=== PATIENT | male | born 1990 | race Caucasian/White ===

== ENCOUNTER 2023-10-24 15:07 | Emergency (ER) | payer OTHER, SELFPAY ==
[2023-10-24 15:10] VITALS: BP 110/71; PULSE 72; RESP 18; TEMP 37.2; O2SAT 100; BMI 19.4
[2023-10-24 16:17] LABS: Basophils Percent Auto 0.5 % (0.2-2.0); Eosinophils Absolute Auto 0.1 10^3/uL (0.0-0.7); Eosinophils Percent Auto 2.6 % (0.9-7.0); Hematocrit 40.8 % (42.0-54.0); Hemoglobin 13.2 g/dL (14.0-18.0); Immature Granulocytes Abs Auto 0.02 10^3/uL (0.00-0.03); Immature Granulocytes Pct Auto 0.5 % (0.0-0.5); Lymphocytes Absolute Auto 0.9 10^3/uL (1.2-3.8); Lymphocytes Percent Auto 20.7 % (20.5-60.0); Mean Corpuscular HGB Conc 32.4 g/dL (29.9-35.2); Mean Corpuscular Hemoglobin 31.4 pg (25.9-34.0); Mean Corpuscular Volume 97.1 fL (80.0-94.0); Monocytes Absolute Auto 0.4 10^3/uL (0.3-0.8); Monocytes Percent Auto 10.4 % (1.7-12.0); Neutrophils Absolute Auto 2.8 10^3/uL (1.4-6.5); Neutrophils Percent Auto 65.3 % (43.0-75.0); Platelet Count 268 10^3/uL (150-450); White Blood Count 4.3 10^3/uL (4.0-11.0)
--- NOTE | 2023-10-24 16:20 | CT_ITS ---
[address] [address] Patient Name: EDU URENA MRN: [id number] date: 1990 Sex: M Assigned Patient Location: ER Current Patient Location: ER Accession/Order Number: [id number] Exam Date: 10/24/2023 16:09 Report Date: 10/24/2023 16:43 At the request of: MILTON WEBER Procedure: CT abdomen pelvis w con EXAMINATION: CT abdomen pelvis w con, 10/24/2023 1:09 PM PST HISTORY: upper abd pain COMPARISON: None. TECHNIQUE: CT scan of the abdomen and pelvis was performed with IV contrast. CT dose reduction technique was used, including Automated Exposure Control. FINDINGS: Lung: No significant finding. Liver: No significant finding. Gallbladder: No significant finding. Spleen: No significant finding. Pancreas: No significant finding. Adrenal glands: No significant finding. Kidneys, ureters and bladder: No significant finding. Bowel: No significant finding. Peritoneum/retroperitoneum: No significant finding. Lymph nodes: No significant finding. Vessels: No significant finding. Body wall: No significant finding. Reproductive: Prominent cystic changes of the bilateral seminal vesicles. Bones: Partially imaged spinal hardware. Hardware artifact limits evaluation. CT/CT abdomen pelvis w con IMPRESSION: No acute findings. Prominent cystic changes of the bilateral seminal vesicles. Electronically authenticated by: TOMA JOHNSON Date: 10/24/2023 16:43
[2023-10-24 16:32] LABS: Alanine Aminotransferase 39 U/L (16-63); Alkaline Phosphatase 47 U/L (46-116); Anion Gap 10.4; Aspartate Amino Transferase 27 U/L (15-37); BUN Creatinine Ratio 20.3; Bilirubin Total 0.2 mg/dL (0.2-1.0); Carbon Dioxide 30.2 mmol/L (21.0-32.0); Chloride 102 mmol/L (98-107); Estimated GFR (African America >60 (>=60); Estimated GFR (Non-African Ame >60 (>=60); Globulin 3.9 g/dL; Glucose 102 mg/dL (74-106); Potassium 4.6 mmol/L (3.5-5.1); Sodium 138 mmol/L (136-145); Total Protein 7.9 g/dL (6.4-8.2); Troponin I High Sensitivity <4.0 pg/mL (4.0-76.1)
[2023-10-24 17:18] VITALS: BP 112/75; PULSE 65; RESP 14; O2SAT 100
--- NOTE | 2023-10-24 19:42 | ED.GENADUL1 ---
HPI - General Adult General Chief complaint: Abdominal Pain Stated complaint: Abdominal Pain Time Seen by Provider: 10/24/23 15:27 Source: patient Mode of arrival: walk-in Limitations: no limitations History of Present Illness HPI narrative: 33-year-old male to the emergency room from a chief complaint of several weeks of right upper quadrant pain worse after eating. He denies any nausea or vomiting. Denies any fever, sweats, chills. Has never had workup for this before. He was sent to gastrointestinal however there months out from scheduling. He denies any chest pain or shortness of breath. Denies any jaundice. Related Data Home Medications Medication Instructions Recorded Confirmed aspirin 81 mg capsule 81 mg PO DAILY 10/24/23 10/24/23 omeprazole 40 mg capsule,delayed 40 mg PO DAILY 10/24/23 10/24/23 release Previous Rx's Medication Instructions Recorded pantoprazole 20 mg tablet,delayed 20 mg PO DAILY 4 weeks #28 tabs 10/24/23 release (Protonix) Allergies Allergy/AdvReac Type Severity Reaction Status Date / Time gabapentin Allergy Intermediate Verified 10/24/23 15:16 Review of Systems ROS Status of ROS 10 or more systems reviewed and unremarkable except as noted in history and below [facility] Social History Smoking status: Current every day smoker Exam Narrative Exam Narrative: VITALS: I have reviewed the triage vital signs. GENERAL: Well developed, well appearing adult in no acute distress. NEURO: Alert and oriented. Moves all extremities. Face is symmetric and expressive. EYES: PERRL. No scleral icterus or conjunctival injection. No discharge. HENT: Normocephalic, atraumatic. Hearing is grossly intact. Nares grossly patent and without discharge. Mucous membranes moist. NECK: No JVD. Patient moves neck without restriction. CARDIO: Rhythm regular. Normal rate. No murmur, rub, or gallop. Pulses equal bilaterally in the upper and lower extremity. No lower extremity edema. PULM: Lungs clear to auscultation in all [place]. No wheezes, rales, or rhonchi. No conversational dyspnea. No splinting, stridor, or accessory muscle use. GI/: Abdomen is soft and non-tender. Normoactive bowel sounds. EXTREMITIES: Symmetric muscle bulk. No joint swelling. No clubbing, cyanosis, or deformity. SKIN: Warm and dry. Normal turgor. No rash or lesions appreciated. PSYCH: Mood, affect, and interaction is appropriate to the setting. Constitutional Vital Signs, click to edit/add: Last Vital Signs Temp 98.9 F 10/24/23 15:10 Pulse 65 10/24/23 17:18 Resp 14 10/24/23 17:18 BP 112/75 10/24/23 17:18 Pulse Ox 100 10/24/23 17:18 O2 Del Method Room Air 10/24/23 17:18 Course Vital Signs Vital signs: Vital Signs Temperature 98.9 F 10/24/23 15:10 Pulse Rate 72 10/24/23 15:10 Respiratory Rate 18 10/24/23 15:10 Blood Pressure 110/71 10/24/23 15:10 Pulse Oximetry 100 10/24/23 15:10 Oxygen Delivery Method Room Air 10/24/23 15:10 Temperature 98.9 F 10/24/23 15:10 Pulse Rate 65 10/24/23 17:18 Respiratory Rate 14 10/24/23 17:18 Blood Pressure 112/75 10/24/23 17:18 Pulse Oximetry 100 10/24/23 17:18 Oxygen Delivery Method Room Air 10/24/23 17:18 Medical Decision Making MDM Narrative Medical decision making narrative: 33 male to emergency department with chief complaint of ongoing abdominal pain. Vital stable, patient is afebrile. CT scan of the abdomen pelvis for evaluation of the gallbladder is ordered. Basic labs ordered. Patient agrees with this plan. He declines any pain or nausea medicine. Labs reviewed and noted. No significant abnormalities. Trivial elevation of lipase. Normal liver function tests. CT scan is without acute findings. I discussed with the patient. He will be referred back to his surgeon Dr. dumas for evaluation with endoscopy and HIDA scan. We'll start him on Protonix at this time for potential treatment of ulcer/gastritis as potential cause. Return precautions were discussed. All questions were answered. The patient was discharged home. Medical Records Medical records reviewed: Yes I reviewed the patient's medical records Lab Data Lab results reviewed: Yes I reviewed the patient's lab results Labs: Lab Results 10/24/23 Range/Units 16:00 WBC 4.3 (4.0-11.0) 10^3/uL RBC 4.20 L (4.70-6.10) 10^6/uL Hgb 13.2 L (14.0-18.0) g/dL Hct 40.8 L (42.0-54.0) % MCV 97.1 H (80.0-94.0) fL MCH 31.4 (25.9-34.0) pg MCHC 32.4 (29.9-35.2) g/dL RDW 12.0 (11.0-15.0) % Plt Count 268 (150-450) 10^3/uL MPV 10.0 (9.5-13.5) fL Neut % (Auto) 65.3 (43.0-75.0) % Lymph % (Auto) 20.7 (20.5-60.0) % Blanco % (Auto) 10.4 (1.7-12.0) % Eos % (Auto) 2.6 (0.9-7.0) % Baso % (Auto) 0.5 (0.2-2.0) % Neut # (Auto) 2.8 (1.4-6.5) 10^3/uL Lymph # (Auto) 0.9 L (1.2-3.8) 10^3/uL Blanco # (Auto) 0.4 (0.3-0.8) 10^3/uL Eos # (Auto) 0.1 (0.0-0.7) 10^3/uL Baso # (Auto) 0.0 (0.0-0.1) 10^3/uL Abs Immat Gran (auto) 0.02 (0.00-0.03) 10^3/uL Imm/Tot Granulo (auto) 0.5 (0.0-0.5) % Sodium 138 (136-145) mmol/L Potassium 4.6 (3.5-5.1) mmol/L Chloride 102 (98-107) mmol/L Carbon Dioxide 30.2 (21.0-32.0) mmol/L Anion Gap 10.4 BUN 13.0 (7.0-18.0) mg/dL Creatinine 0.64 L (0.70-1.30) mg/dL Est GFR ( Amer) >60 (>=60) Est GFR (Non-Af Amer) >60 (>=60) BUN/Creatinine Ratio 20.3 Glucose 102 (74-106) mg/dL Calcium 9.0 (8.5-10.1) mg/dL Total Bilirubin 0.2 (0.2-1.0) mg/dL AST 27 (15-37) U/L ALT 39 (16-63) U/L Alkaline Phosphatase 47 (46-116) U/L Troponin I High Sens <4.0 L (4.0-76.1) pg/mL Total Protein 7.9 (6.4-8.2) g/dL Albumin 4.0 (3.4-5.0) g/dL Globulin 3.9 g/dL Albumin/Globulin Ratio 1.0 Lipase 79.0 H (16.0-77.0) U/L Imaging Data CT scan - abdomen: Radiologist's impression: ITS Impressions Abdomen/Pelvis CT 10/24/23 16:20 IMPRESSION: No acute findings. Prominent cystic changes of the bilateral seminal vesicles. Electronically authenticated by: TOMA JOHNSON Date: 10/24/2023 16:43 ECG Data Attestation: ?I have reviewed the pertinent ECG results. Discharge Plan Discharge Chief Complaint: Abdominal Pain Clinical Impression: Abdominal pain Patient Disposition: Home, Self-Care Time of Disposition Decision: 17:26 Condition: Good Mode of Transportation: Private Vehicle Prescriptions / Home Meds: New pantoprazole [Protonix] 20 mg tablet,delayed release (DR/EC) 20 mg PO DAILY 28 Days Qty: 28 0RF No Action omeprazole 40 mg capsule,delayed release(DR/EC) 40 mg PO DAILY aspirin 81 mg capsule 81 mg PO DAILY Print Language: Vietnamese Instructions: Abdominal Pain (ED) Additional Instructions: Call the office of Dr. Toledo tomorrow morning to arrange for follow up care. Stop omeprazole. Begin Protonix. Referrals: Jayde Atkins NP [Primary Care Provider] - 1 week Discharge Date/Time: 10/24/23 17:42 Stand Alone Forms: Portal Instructions
== END 2023-10-24 17:42 | disposition home or self-care (01) ==
PROVIDERS: Emergency Provider Student in an Organized Health Care Education/Training Program; PCP Nurse Practitioner Family
DX: R10.11 Right upper quadrant pain (principal); Z79.82 Long term (current) use of aspirin; F17.200 Nicotine dependence, unspecified, uncomplicated
CPT/HCPCS: 36415; 74177; 80053; 83690; 84484; 85025; 99285; Q9967